=== PATIENT | male | born 1955 | race Caucasian/White ===

== ENCOUNTER → 2017-02-21 | Day surgery (SDC) | payer OTHER ==
[~2017-02-21] VITALS: Ht 179.1 cm; Wt 78.9 kg
[~2017-02-21] MED LIST: ACET325T51 PO; ATOR40TA69 PO; FERR325T40 PO; ISOS30TA4 PO; Lactated Ringer's 1,000 ML IV ONE; METO50TA3 PO; MULT-1018 PO; NITR0.4T SL; OMEP20CA11 PO; POTA99TA21 PO; Propofol 10,000 mCg/mL 20 mL Inj ONE; SPIR25TA PO; VIT1CAPS15 PO; VIT1TABL52 PO; fentaNYL-PF 50 mCg/mL 2 mL Inj ONE
--- NOTE | 2017-02-21 07:43 | PCM.HPANE ---
Patient Data Surgeon Admitting Provider: Attending Provider:Danni Wagner MD Primary Care Physician:Will Plascencia MD Other Provider:Tara Waters Anesthesia Reason for Visit Esophageal Varices Without Bleeding Ht/WT & BMI Body Mass Index Allergies Coded Allergies: No Known Allergies (Verified Allergy, Unknown, 03/28/15) Past Anesthesia History Anesthesia History: Denies:: Abnormal Airway, Anesthesia Reactions, Fam Anesthesia Reaction Diabetes History Hx Diabetes?: No MRSA MRSA: Yes Medications Hypertension Medication: Yes Home Meds Incl Beta Lea: Yes Date Beta Lea Taken: Feb 21, 2017 Time Beta Lea Taken: 06:30 Active Scripts Spironolactone (Aldactone)25 Mg Drzbpy02 Mg PO DAILY #60 TABLET Prov:Joanna Mccabe DO 11/07/15 Metoprolol Tartrate 50 Mg Arilyq66 Mg PO BID #60 TABLET Prov:Joanna Mccabe DO 11/07/15 Reported Medications Vit B12/Intrins Fact/FA Cmb #2 (Intrinsi [id number] Tablet)1 Each Tablet1 Each PO 02/21/17 Potassium Gluconate (Potassium)99 Mg Cnvyqm38 Mg PO 02/21/17 Vit B12/FA/Pyridoxine HCl/Aa15 (Glycotrol Capsule)1 Each Capsule1 Each PO 02/21/17 Multivitamin (Multi Vitamin Daily)1 Each Tablet1 Each PO DAILY 30 Days Ref 0 02/21/17 Ferrous Sulfate (Iron)325 Mg Sxkmle822 Mg PO 02/21/17 Omeprazole 20 Mg Capsule.dr20 Mg PO DAILY Ref 0 02/21/17 Isosorbide MN ER 30 Mg Tab.er.24h30 Mg PO QAM #30 11/05/15 Atorvastatin Calcium 40 Mg Ljtdbv59 Mg PO DAILY #30 11/05/15 Nitroglycerin SL (Nitrostat)0.4 Mg Tab.subl0.4 Mg SL q15min PRN For Chest Pain # 25 11/05/15 Discontinued Reported Medications Acetaminophen 325 Mg Lylbxu855 Mg PO Q4H PRN For Pain Ref 0 11/05/15 History History of ENT Problems?: No HEENT History: Denies:: Abnormal Airway Denture Type: None (missing upper teeth except 2) Teeth Condition: No Teeth Tooth Decay Missing Teeth Hx of Heart Problems?: Yes Cardiovascular History: Positive for:: Chest Pain (denies any currently) Heart Murmur Denies:: Cardiac Surgery Congestive Heart Failure Edema Hypertension Irregular Heartbeat Pacemaker Thrombophlebitis Hx of Respiratory Problem?: Yes Respiratory History: Positive for:: Hemoptysis Denies:: Asthma COPD Chest Surgery Dyspnea Emphysema Pneumonia Tuberculosis Hx Neurologic Problems?: No Hx of GI Problems?: Yes Hx of Problems?: No Male Hx: Denies:: Prostate Problems Scrotal Mass Testicular Surgery Hx Musculoskeletal Problems?: Yes Musculoskeletal History: Denies:: Back Injury Joint Replacement Musculoskeletal Trauma Hx of Psycho/Social Problems?: No Hx Surgeries?: Yes Hx Any Other Health Problems?: No History Blood Transfusions: Positive for:: Blood Transfusions Denies:: Blood Transfuse Reaction Hx Alcohol Use: YesHx Substance Use: No Smoking Status: Current Every Day Smoker Have You Smoked inLast 12 mo: Yes Stop/Bang Risk Assessment Category Category 1A: Patient has history of documented sleep apnea, and HAS NOT received any narcotic, sedative or anesthesia administration during this stay. Category 1B: Patient has history of documented sleep apnea, and HAS received any narcotic , sedative or anesthesia administration during this stay Category 2: Patient has SUSPECTED Obstructive Sleep Apnea, and HAS received any narcotic , sedative or anesthesia administration during this stay. Category 3: Patient has SUSPECTED Obstructive Sleep Apnea and HAS NOT received narcotic, sedative or anesthesia administration during this stay. Category 4: Outpatient in Procedural Areas with known sleep apnea or who screen positive for High Risk via the STOP/BANG questionnaire. Exam Exam General Appearance: Alert, Oriented X3, Cooperative, No Acute Distress HEENT/AIRWAY: MP 2 Lungs: Normal Air Movement Heart: Exam Unremarkable Plan Impression Patient chart reviewed, patient interviewed and anesthestic plan with risks, benefits, and alternatives discussed, and informed consent obtained. NPO per Anesth. Guidelines: Yes ASA Physical Status: ASA3 Severe Disease Anesthetic Plan: MAC Bene/Risks/Altern/Consents: Yes HP Complete Prior to Induction: Yes Nehemiah Veliz MD Feb 21, 2017 07:42
[2017-02-21 08:10] VITALS: BP 111/54; PULSE 50; RESP 12; O2SAT 97
[2017-02-21 08:42] VITALS: BP 114/59; PULSE 57; RESP 17; O2SAT 96
[2017-02-21 08:52] VITALS: BP 130/68; PULSE 59; RESP 17; O2SAT 96
--- NOTE | 2017-02-21 08:52 | PCM.ANEP1 ---
Post Anesthesia PACU Phase 1 Assessment Vital Signs see anesthesia record Vital Signs Date Time Temp Pulse Resp B/P Pulse Ox O2 Delivery O2 Flow Rate FiO2 02/21/17 08:42 57 17 114/59 96 Room Air 02/21/17 08:10 36.7 50 12 111/54 97 Room Air Anesthetic Administered: MAC Level of Alertness: Sleepy, easy to arouse PRATER's with Equal Strength: Yes Pain: No Nausea or Vomiting: No CV Function & Hydration Stable: Yes Airway Device: Oxygen Delivery: Room Air Lungs: Normal Air Movement PACU Phase 2 Assessment Complications: No Follow up Care: No Patient Instructions Provided: N/A Nehemiah Veliz MD Feb 21, 2017 08:52
[2017-02-21 09:02] VITALS: BP 139/65; PULSE 55; RESP 17; O2SAT 95
--- NOTE | 2017-02-21 09:09 | ENDO ---
[address] [address] ENDOSCOPY PROCEDURE PATIENT: AALIYAH GUY : 1955 MR#: [id number] ADMIT: 02/21/2017 JOB ID: [id number] DATE: 02/21/2017 PROCEDURE: Esophagogastroduodenoscopy. INDICATION: Variceal screening. The patient's ASA classification, Mallampati score and medications as per anesthesia notes. INSTRUMENT USED: GIF H 180 J. PROCEDURE DETAILS: After informed consent was obtained, the patient was brought into the GI suite, where he was placed on oxygen via nasal cannula and monitored with continuous pulse oximeter, telemetry and blood pressure monitoring. A time-out was performed. Then, he was placed in the left lateral decubitus position and medications were administered for sedation. A bite block was placed. A standard EGD scope was inserted through the bite block and advanced under direct visualization to the second portion of the duodenum without difficulty. FINDINGS: 1. Normal appearing duodenal bulb, first and second portion. 2. Normal appearing pylorus. 3. The mucosa in the antrum and body of the stomach had a mosaic appearance consistent with portal gastropathy. 4. Retroflexed views of the gastric body revealed more of the same portal gastropathy of the mucosa in the fundus and at the cardia. 5. No gastric varices were seen on today's examination. 6. The GE junction was at approximately 42 cm and appeared regular. Arising from the GE junction and extending up to 35 cm were two small varices that flattened out with insufflation. No stigmata of recent bleeding or high risk for bleeding was noted on these varices. Proximal to 35 cm, the esophagus otherwise appeared normal. IMPRESSION: 1. Portal gastropathy. 2. Small esophageal varices. RECOMMENDATIONS: 1. Repeat EGD in one year. 2. Followup in GI clinic as scheduled. COMPLICATIONS: None. ESTIMATED BLOOD LOSS: 0.
== END | disposition home or self-care (01) ==
LOC: END 07:30
PROVIDERS: ATTEND Internal Medicine Gastroenterology
DX: I85.00 Esophageal varices without bleeding (principal); K76.6 Portal hypertension; K31.89 Other diseases of stomach and duodenum; K74.60 Unspecified cirrhosis of liver; F17.210 Nicotine dependence, cigarettes, uncomplicated; K21.9 Gastro-esophageal reflux disease without esophagitis; I25.10 Atherosclerotic heart disease of native coronary artery without angina pectoris; D50.9 Iron deficiency anemia, unspecified; Z79.82 Long term (current) use of aspirin
CPT/HCPCS: 43235; J2704; J3010; J7120